=== PATIENT | female | born 1940 | race Caucasian/White ===

== ENCOUNTER → 2017-07-01 | Outpatient (CLI) | payer MEDICARE, OTHER | END | disposition home or self-care (01) | LOC: MRI 15:33 | DX: I73.9 Peripheral vascular disease, unspecified (principal) | CPT/HCPCS: 70551 ==

== ENCOUNTER → 2018-10-08 | Outpatient (CLI) | payer MEDICARE, OTHER ==
--- NOTE | 2018-10-08 10:02 | KCIC ---
Complete abdomen ultrasound study Clinical indications: jaundice. Abnormal liver function tests. FINDINGS: There is a hypoechoic nodule of the pancreas measuring 29 mm in size. Main pancreatic duct does not appear to be dilated by ultrasound. The intrahepatic and extra hepatic bile ducts are dilated however. The extra hepatic bile duct measures up to 17 mm in caliber. The gallbladder is distended and filled with biliary sludge. Gallbladder measures up to 10.9 cm in length. The liver measures 15.4 cm in length. No hepatic mass is seen. The length of the right kidney is 9.3 cm. The length of the left kidney is 10.1 cm. No hydronephrosis or renal mass or perinephric fluid collection is seen on either side. No focal aneurysmal dilatation of the abdominal aorta is seen. The intrahepatic portion of the IVC is unremarkable. The spleen measures 9 cm in length which is normal. No ascites is evident. IMPRESSION: 29 mm mass of the head of the pancreas with dilatation of the biliary tree and distention of the gallbladder. This may represent pancreatic malignancy. CT study of the abdomen with IV contrast is recommended. The gallbladder is distended and completely filled with biliary sludge. Electronically signed by: Valente Palumbo MD (10/08/2018 9:59 AM) [id number]
== END | disposition home or self-care (01) ==
LOC: KCIC US 07:42
PROVIDERS: ATTEND Family Medicine
DX: K82.8 Other specified diseases of gallbladder (principal); K86.9 Disease of pancreas, unspecified
CPT/HCPCS: 76700

== ENCOUNTER 2018-12-04 15:42 | Emergency (ER) | payer MEDICARE, OTHER ==
[~2018-12-04] VITALS: Ht 157.5 cm; Wt 53.1 kg
[~2018-12-04 15:42] MED LIST: ACET500T68 PO; AMLO10TA8 PO; AMOX1TAB61 PO; ATOR10TA60 PO; BUSP5TAB PO; HYDR25CA75 PO; IBUP-1060 PO; INSU100I11 SQ; RANI150C PO; RISP0.5T3 PO; TRAM50TA PO
[2018-12-04 16:30] VITALS: BP 134/84
--- NOTE | 2018-12-04 17:37 | PHYS DOC ---
Past Medical History Past Medical History: Liver Disease Additional Past Medical Histor: pancreatic mass Additional Past Surgical Histo: RIGHT MASTECTOMY, LEFT ANKLE FRACTURE WITH PLATE Alcohol Use: None Drug Use: None Adult General Chief Complaint Chief Complaint: OTHER COMPLAINTS HPI HPI Ill who presents with complaint that she thinks that her feeding tube may have fallen out. Patient had been admitted back in September and had a Whipple procedure performed for pancreatic mass and has had feeding tube in since. She has an appointment with Dr. Wesley, her surgeon, for removal of the feeding tube on Saturday. Patient is no longer doing tube feeds. Nursing staff is aren't reevaluated patient and found the feeding tube is still in place. Patient has no other complaints.[] Review of Systems Review of Systems Constitutional: Denies fever or chills [] Respiratory: Denies cough or shortness of breath [] Cardiovascular: No additional information not addressed in HPI [] GI: Admits to postop abdominal discomfort without vomiting or diarrhea [] Integument: Denies rash or skin lesions [] Neurologic: Denies headache, focal weakness or sensory changes [] Allergies Allergies Allergies Coded Allergies Type Severity Reaction Last Updated Verified morphine Allergy Intermediate 12/04/18 Yes Physical Exam Physical Exam Constitutional: Well developed, well nourished, no acute distress, non-toxic appearance. [] Cardiovascular: Regular rate and rhythm[] Lungs & Thorax: Bilateral breath sounds clear to auscultation [] Abdomen: Bowel sounds normal, soft, with mild incisional tenderness. PEG tube in place and area surrounding stoma is clean dry and intact. [] Skin: Warm, dry, no erythema, no rash. [] Neurologic: Alert and oriented X 3, no focal deficits noted. [] Current Patient Data Vital Signs Vital Signs Date Time Temp Pulse Resp B/P (MAP) Pulse Ox O2 Delivery O2 Flow Rate FiO2 12/04/18 16:30 96.3 89 16 134/84 (101) 97 Room Air 96.3 EKG EKG [] Radiology/Procedures Radiology/Procedures [] Course & Med Decision Making Course & Med Decision Making Pertinent Labs and Imaging studies reviewed. (See chart for details) [] Dragon Disclaimer Dragon Disclaimer This electronic medical record was generated, in whole or in part, using a voice recognition dictation system. Departure Departure Impression: Primary Impression: Encounter for care related to feeding tube Disposition: HOME, SELF-CARE Condition: STABLE Referrals: TROY GRIMM MD (PCP) Patient Instructions: Care of a Feeding Tube Site Additional Instructions: Keep appointment with surgeon for next week. MARIA MARIE Jr. DO Dec 04, 2018 17:37
== END 2018-12-04 17:43 | disposition home or self-care (01) ==
LOC: ER 15:42
DX: Z46.59 Encounter for fitting and adjustment of other gastrointestinal appliance and device (principal); Z90.11 Acquired absence of right breast and nipple; Z88.5 Allergy status to narcotic agent
CPT/HCPCS: 99281

== ENCOUNTER → 2019-02-03 | Outpatient (CLI) | payer MEDICARE, OTHER ==
[~2019-02-03] MED LIST changes: +CONTRAST GIVEN. MC PRN; +IOHEXOL 240 MG/ML 50ML VIAL. PO ONE; +IOHEXOL 300 MG/ML 100ML VIAL. IV ONE
--- NOTE | 2019-02-04 08:07 | RAD ---
Examination: CT CHEST ABD PELVIS W/CONTRAST History: Malignant neoplasm of the pancreatic head Comparison/Correlation: 10/21/2018 CT chest and abdomen with contrast, 10/17/2018 CT abdomen and pelvis with contrast Findings: Axial images of the chest, abdomen, and pelvis were obtained following IV and oral contrast. Sagittal and coronal formatted images were obtained. Right mastectomy is noted. Right axillary surgical clips are present. No pneumothorax. No infiltrates. Calcified granulomas are present. No suspicious new pulmonary nodule or mass lesion. The left posterolateral mid thoracic level pulmonary nodule with minimal calcifications are stable. This measures up to 0.5 cm diameter. No pleural or pericardial effusion. Minimal perihepatic ascites is present. Left intrahepatic biliary gas is present. Cholecystectomy is noted. Pancreatic ductal dilatation is present. The pancreatic body and tail are atrophic in appearance. Pancreatic head is not delineated. Correlate with surgical history. Large quantity of stool in the colon. Circumferential wall thickening of the proximal hemicolon is notable with edematous appearance. No extraluminal gas. Diverticulosis is present. Small amount of pelvic free fluid is present. Urinary bladder is unremarkable. 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 Approximately 50 percent stenosis is present. Superior mesenteric artery is widely patent. Inferior mesenteric artery opacifies with contrast although assessment for stenosis is limited on this exam. Scoliosis of the lumbar spine is present with advanced degenerative change. Impression: Marked circumferential thickening of the proximal colon is noted with edematous appearance and no surrounding stranding. Findings of concern for colitis. No extraluminal gas or loculated fluid. Small amount of ascites is present. No new masses. No enlarged lymph nodes in the interval. No metastatic findings. Intrahepatic biliary gas. Pancreatic head is not identified. Findings are presumably postoperative. No common bile duct dilatation. PQRS Compliance Statement: One or more of the following individualized dose reduction techniques were utilized for this examination: 1. Automated exposure control 2. Adjustment of the mA and/or kV according to patient size 3. Use of iterative reconstruction technique Electronically signed by: Moose Bennett MD (02/04/2019 8:05 AM) [facility] [place]
--- NOTE | 2019-02-04 08:12 | RAD ---
Examination: BONE SCAN WHOLE BODY History: Pancreatic and breast cancer. Comparison/Correlation: 02/03/2019 CT chest abdomen and pelvis with contrast, 10/14/2018 whole-body bone scan Findings: 25.8 mCi technetium 99m MDP was intravenously administered for purposes of total body bone scintigraphy. Uptake of radiotracer involving the bony structures is unremarkable. No abnormal, suspicious regions of intense uptake or regions of suspicious photopenia. Left knee medial compartment uptake compatible with degenerative change is present. Kidneys and urinary bladder are seen. Impression: No suspicious uptake to suggest osteoblastic metastases. No suspicious photopenic regions. No significant change. Electronically signed by: Moose Bennett MD (02/04/2019 8:09 AM) [facility]
== END | disposition home or self-care (01) ==
LOC: NM 07:40
PROVIDERS: ATTEND Internal Medicine Hematology & Oncology
DX: C25.0 Malignant neoplasm of head of pancreas (principal); J84.10 Pulmonary fibrosis, unspecified; K57.90 Diverticulosis of intestine, part unspecified, without perforation or abscess without bleeding; I77.4 Celiac artery compression syndrome; I10 Essential (primary) hypertension; Z88.8 Allergy status to other drugs, medicaments and biological substances; Z90.11 Acquired absence of right breast and nipple; Z90.49 Acquired absence of other specified parts of digestive tract
CPT/HCPCS: 71260; 74177; 78306; A9503; Q9966; Q9967